=== PATIENT | female | born 1985 | race Hispanic/Latino ===

== ENCOUNTER 2023-03-31 12:13 | Outpatient (CLI) | payer BC | END 2023-03-31 12:14 | disposition home or self-care (01) | LOC: RAD 12:13 | PROVIDERS: ATTEND Nurse Practitioner Women's Health | DX: M54.2 Cervicalgia (principal); M54.50 Low back pain, unspecified; M47.812 Spondylosis without myelopathy or radiculopathy, cervical region; M25.811 Other specified joint disorders, right shoulder | CPT/HCPCS: 72040; 72100 ==